=== PATIENT | female | born 1995 | race Caucasian/White ===

== ENCOUNTER 2018-06-16 02:56 | Inpatient (IN) | payer OTHER ==
[~2018-06-16] VITALS: Ht 170.2 cm; Wt 62.6 kg
--- NOTE | ~2018-06-16 | HC ---
[facility] [place] [address] CONSULTATION Name: YVONNE CAMERON Room #: 430-P [facility] IN M.R.#: [id number] Admission: 06/16/18 Attend Phys: Marcelo Gore Discharge: Date of : 89 Report #: [id number] THIS REPORT FOR: //name// CC: Ethan Gore DATE OF SERVICE: 06/16/2018 REASON FOR CONSULTATION: I was asked to evaluate concerning meningitis. HISTORY OF PRESENT ILLNESS: The patient is a 22-year-old otherwise healthy white female who has an [id number] son at home and works in an office setting in sales, who presents with a 24-hour history of progressive headache associated with fever, chills, nausea, vomiting and some diarrhea. Onset was gradual with mild headache. Then, developed some vertiginous symptoms and vomiting. The headache now is diffuse. She had temperature up to 103 degrees at home. A couple of episodes of diarrhea throughout the last 24 hours. Nausea and vomiting multiple times prior to her presentation to the emergency room. She has had photophobia. Pain in her neck with some stiffness. No auditory issues. No pharyngitis or oral lesions. No rash. No arthritis symptoms. Mild myalgias. REVIEW OF SYSTEMS: In addition to the above, review of systems notes no weight loss. No recent dental work or sinus complaints. No cardiac issues. No skin ulcers or lesions. No cough or sputum production. Denies any polydipsia. She is not on control. No recent sexual contacts. No genitourinary complaints. Denies any lymphadenopathy. No psychiatric issues and no allergy issues. She reports no travel. No HIV risk factors. She was HIV negative with her son a year and a half ago. Denies any mosquito bites or insect exposure. She has been basically inside for the last week or so. Her son was sick approximately 3 weeks ago with a short episode of fever and diarrhea. He is back to his baseline. ALLERGIES: None. MEDICATIONS: None prior to her admission, was given Decadron, vancomycin and ceftriaxone in the emergency room. PAST MEDICAL HISTORY: Laparoscopy for ruptured ovarian cyst. Breast abscess. Tonsillectomy. FAMILY HISTORY: Negative for cardiovascular, pulmonary or neurologic issues. SOCIAL HISTORY: Nonsmoker, minimal alcohol use. No recreational drug use. [facility] [address] [place] [address] CONSULTATION Name: YVONNE CAMERON Radha Room #: [address] [place] [address] [place] ..#: [id number] Admission: 06/16/18 Attend Phys: Marcelo Gore Discharge: Date of : 89 Report #: [id number] PHYSICAL EXAMINATION: VITAL SIGNS: Afebrile and hemodynamically stable as noted in her vital record. GENERAL: She was sleeping. She awoke with normal mental status. She was well developed and well nourished. EYES: Unremarkable. Pupils are equal, round and reactive to light. Cranial nerves are intact. MOUTH: Unremarkable. NECK: 1+ nuchal rigidity. No thyromegaly or mass. No peripheral adenopathy. SKIN: Without rash or decubitus. BACK: Nontender except where the lumbar puncture site was. No ecchymosis. CHEST: Clear. No adventitious sounds. Good inspiratory effort. HEART: Regular without murmur, gallop or rub. No chest wall tenderness. No rash. ABDOMEN: Soft, nontender, no hepatosplenomegaly or mass appreciated. Normal bowel sounds. EXTREMITIES: Unremarkable. Pulse is normal. No pericardial edema. Straight leg raise is normal. Deep tendon reflexes were normal. I did not stand the patient. Strength in her lower extremities and upper extremities normal. Swds-by-czqd testing normal. NEUROLOGIC: Otherwise, nonfocal. PSYCHIATRIC: Mood normal. LABORATORY STUDIES: Spinal tap, 48 WBCs, 84% segs, 11% lymphs, 4 RBCs, glucose 62, protein 60. Gram stain, no organisms seen. Culture is pending. Hemoglobin 13.3, platelet count 138,000, white count 4.7, 83% segs, 8% lymphs. Creatinine 0.8. Liver function test normal. Urinalysis unremarkable. CT head negative, no sinus changes, scan was reviewed. Chest x-ray clear, scan was reviewed. Group A strep antigen of the throat negative. IMPRESSION: A 22-year-old with neutrophilic meningitis. Although, this is neutrophilic, she does have presentation most consistent with viral meningitis. She has no known human immunodeficiency virus risk factors or immunodeficiency. No other exposures of note. Mental status at this time appears normal. RECOMMENDATION: Continue IV antibiotic therapy pending culture results. Use Decadron for 48 hours. Monitor for change in mental status. Screen for HIV and test. I have sent off cultures for bacterial pathogens in addition to a cryptococcal antigen, HSV PCR and enterovirus PCR. Maintain adequate hydration and pain control. Continue with droplet precautions for the next 24 hours. <ELECTRONICALLY SIGNED> By: Zacarias German MD 06/17/18 [id number] Zacarias German MD /nt
[~2018-06-16 02:56] MED LIST: NORFLEX100 MG PO
[2018-06-16 03:08] VITALS: BP 129/77
[2018-06-16] MEDS ORDERED: TYLENOL325 MG PO (03:14)
[2018-06-16 03:43] LABS: ABSOLUTE NEUTROPHILS 3.9 thou/uL (1.4-8.2); BASOPHILS 0.5 % (0.0-2.0); EOSINOPHILS 0.6 % (0.0-3.0); HEMATOCRIT 38.7 % (37.0-47.0); HEMOGLOBIN 13.3 gm/dL (12.0-15.0); LYMPHOCYTES 8.1 % (24.0-44.0); MCH 30.8 pg (26.0-34.0); MCHC 34.4 g/dL (28.0-37.0); MCV 89.6 fL (80.0-100.0); MONOCYTES 7.5 % (1.0-8.0); PLATELET COUNT 138 thou/uL (150-400); POLYS 83.3 % (36.0-66.0); RBC 4.32 mil/uL (4.20-5.00); RDW 12.5 % (10.5-14.5); WBC 4.7 thou/uL (4.0-11.0)
[2018-06-16 03:50] LABS: CALCIUM 8.7 mg/dL (8.5-10.1); CREATININE 0.8 mg/dL (0.6-1.0); POTASSIUM 3.6 mmol/L (3.5-5.1)
[2018-06-16 03:54] LABS: ALBUMIN 3.9 g/dL (3.4-5.0); TOTAL BILIRUBIN 0.4 mg/dL (<0.1-1.0); TOTAL PROTEIN 7.7 g/dL (6.4-8.2)
[2018-06-16 04:08] LABS: URINE BILIRUBIN NEGATIVE (Negative); URINE BLOOD TRACE (Negative); URINE CLARITY CLEAR; URINE COLOR YELLOW; URINE GLUCOSE-RANDOM* NEGATIVE (Negative); URINE KETONES NEGATIVE (Negative); URINE LEUKOCYTES-REFLEX NEGATIVE (Negative); URINE NITRITE-REFLEX NEGATIVE (Negative); URINE PROTEIN (DIPSTICK) NEGATIVE (Negative); URINE SPECIFIC GRAVITY 1.025 (1.005-1.035); URINE UROBILINOGEN 0.2 E.U./dl (0.2-1.0)
[2018-06-16 04:44] LABS: CSF CLARITY CLEAR; CSF COLOR COLORLESS; VOLUME 8 ml
[2018-06-16 04:52] LABS: CSF GLUCOSE 62 mg/dL (40-70)
[2018-06-16 05:01] LABS: CSF RBC 4 /mm3
[2018-06-16 05:03] LABS: CSF WBC 48 /mm3 (0-10)
[2018-06-16 05:44] LABS: CSF EOSINOPHILS 0 %; CSF LYMPHOCYTES 11 %; CSF MONONUCLEARS 5 %; CSF POLYS 84 %
[2018-06-16 05:58] VITALS: BP 92/40
[2018-06-16 07:36] VITALS: BP 97/43
[2018-06-16 07:56] VITALS: BP 103/46
[2018-06-16 12:25] LABS: HSV PCR SOURCE CSF
[2018-06-16 15:44] VITALS: BP 106/54
[2018-06-16 20:55] VITALS: BP 101/47
[2018-06-17 03:08] LABS: HIV ANTIBODY Non Reactive (Non Reactive)
[2018-06-17 04:36] VITALS: BP 116/58
[2018-06-17 07:25] VITALS: BP 114/59
[2018-06-17 16:17] VITALS: BP 114/59
[2018-06-18 23:05] LABS: HSV 1 DNA Negative (Negative); HSV 2 DNA Negative (Negative)
== END 2018-06-17 17:30 | disposition home or self-care (01) | DRG 75 ==
LOC: ER 02:56 → EROBS 05:42 → 4E 05:42
PROVIDERS: Emergency Medicine; Specialist
PROC: 009U3ZX Drainage of Spinal Canal, Percutaneous Approach, Diagnostic (ICD-10-PCS; principal; 2018-06-16)
DX: A87.9 Viral meningitis, unspecified (principal); E43 Unspecified severe protein-calorie malnutrition; D69.6 Thrombocytopenia, unspecified; Z90.89 Acquired absence of other organs; Z79.899 Other long term (current) drug therapy
CPT/HCPCS: 10183